=== PATIENT | female | born 1960 | race Hispanic/Latino ===

== ENCOUNTER → 2024-04-20 | Day surgery (SDC) | payer OTHER ==
[2024-04-17 14:23] LABS: BASOPHILS % 0.2 % (0.0-1.0); EOSINOPHILS # (AUTO) 0.1 (0.0-0.4); EOSINOPHILS % 1.6 % (0.0-6.0); HEMATOCRIT 41.2 % (34.2-44.1); HEMOGLOBIN 13.3 g/dL (12.0-16.0); LYMPHOCYTES # (AUTO) 3.6 (1.0-3.2); LYMPHOCYTES % 41.2 % (18.0-39.1); MEAN CORPUSCULAR HEMOGLOBIN 30.9 pg (28-32); MEAN CORPUSCULAR HGB CONC 32.3 g/dL (31-35); MEAN CORPUSCULAR VOLUME 95.6 fL (81-99); MONOCYTES # (AUTO) 0.6 (0.2-0.8); MONOCYTES % 7.3 % (4.4-11.3); NEUTROPHILS # (AUTO) 4.3 (2.1-6.9); NEUTROPHILS % 49.5 % (38.7-80.0); PLATELET COUNT 220 x10e3/uL (140-360); RED BLOOD COUNT 4.31 x10e6/uL (3.6-5.1); RED CELL DISTRIBUTION WIDTH 12.6 % (11.7-14.4); WHITE BLOOD COUNT 8.64 x10e3/uL (4.8-10.8)
[~2024-04-20] MED LIST: ATORVASTATIN CA20 MG PO; CRESTOR40 MG PO; LIDOCAINE HCL 2% LOCAL INJ 5 ML SDV VIAL INJ ONE; MAGNESIUM100 MG PO; OLMESARTAN-HCT1 EACH PO; OMEGA-31000 MG PO; PROPOFOL IV EMULSION 10 MG/ML 20 ML VIAL ONE
[2024-04-20] MEDS: LACTATED RINGER'S 1,000 ML ONE (09:56)
[2024-04-20 12:47] VITALS: TEMP 97.2
[2024-04-20 13:00] VITALS: BP 103/72; PULSE 67; RESP 16; O2SAT 100
== END | disposition home or self-care (01) ==
LOC: OR 09:42
PROVIDERS: ATTEND Internal Medicine Gastroenterology
DX: D12.0 Benign neoplasm of cecum (principal); D12.3 Benign neoplasm of transverse colon; K57.30 Diverticulosis of large intestine without perforation or abscess without bleeding; K64.1 Second degree hemorrhoids; K59.00 Constipation, unspecified; R10.32 Left lower quadrant pain; I10 Essential (primary) hypertension; E78.5 Hyperlipidemia, unspecified; K76.0 Fatty (change of) liver, not elsewhere classified; Z71.3 Dietary counseling and surveillance; Z68.26 Body mass index [BMI] 26.0-26.9, adult; M06.9 Rheumatoid arthritis, unspecified; M19.91 Primary osteoarthritis, unspecified site; G89.29 Other chronic pain; Z79.899 Other long term (current) drug therapy
CPT/HCPCS: 36415; 45385; 85025; 93005; J2003; J2704; J7121